=== PATIENT | female | born 1945 | race Caucasian/White ===

== ENCOUNTER → 2017-05-29 09:10 | Outpatient (CLI) | payer BC, MEDICARE, SELFPAY ==
--- NOTE | 2017-05-29 09:22 | MM_ITS ---
MM Dig screening mamm BI w/CAD CAD Screening ORDERING PHYSICIAN : Bev Truong PATIENT AGE: 72 years GENDER: Female COMPARISON: Previous mammograms: December INDICATION: No new complaints no hormones. Noncontributory family history . Previous right breast benign excisional surgical biopsy TECHNIQUE: Standard CC and MLO images were obtained. R2 CAD reviewed. FINDINGS: Minimal fibroglandular elements with generalized fatty replacement. No significant new findings either breast. No dominant mass nor suspicious calcifications. Prior films are helpful and supportive stable character breast bilaterally. The minor asymmetry appears stable with fibroglandular elements most evident in the medial retroareolar region ===IMPRESSION: = Stable bilateral mammogram with no significant new findings. Bilateral follow-up in one year recommended BI-RADS Category: 1 Negative 1 RECOMMENDED FOLLOW-UP: 1YR - 1 YEAR FOLLOW-UP (A letter has been sent to the patient regarding results of the study.)
== END ==
PROVIDERS: Family Provider Nurse Practitioner Family; PCP Nurse Practitioner Family; Visit Provider Nurse Practitioner Family
DX: Z12.31 Encounter for screening mammogram for malignant neoplasm of breast (principal)
CPT/HCPCS: 77067

== ENCOUNTER → 2018-06-04 15:40 | Outpatient (CLI) | payer BC, SELFPAY ==
--- NOTE | 2018-06-04 15:47 | MM_ITS ---
MM Dig screening mamm BI w/CAD CAD Screening COMPARISON: Digital mammograms with CAD 05/29/2017 and 01/02/2010 INDICATION: There is no personal or family history of breast cancer. There has been previous biopsy right breast for benign disease. TECHNIQUE: Standard CC and MLO images were obtained. R2 CAD reviewed. FINDINGS: The breasts are composed primarily of fat with minimal scattered fibro glandular densities in each breast. There is a benign-appearing calcification in each breast. There is no suspicious lesion and there are no suspicious microcalcifications. IMPRESSION: Fatty type breast parenchyma with no suspicious lesion seen BI-RADS Category: 2 Benign Finding(s) RECOMMENDED FOLLOW-UP: 1YR - 1 YEAR FOLLOW-UP (A letter has been sent to the patient regarding results of the study.)
== END ==
PROVIDERS: PCP Nurse Practitioner Family; Visit Provider Nurse Practitioner Family
DX: Z12.31 Encounter for screening mammogram for malignant neoplasm of breast (principal)
CPT/HCPCS: 77067

== ENCOUNTER → 2019-10-01 09:36 | Outpatient (CLI) | payer BC, SELFPAY ==
--- NOTE | 2019-10-01 09:44 | MM_ITS ---
PROCEDURE: MM DIG SCREENING MAMM BI W/CAD Digital Breast Tomosynthesis Included CLINICAL INDICATION: SCREENING There is no personal or family history of breast cancer. There has been a previous biopsy right breast for benign disease. COMPARISON: MG DMSB DIGITAL MAMM-SCREEN BILATERAL from 01/02/2010 [facility] MM Dig screening mamm BI w/CAD from 05/29/2017 [facility] MM Dig screening mamm BI w/CAD from 06/04/2018 TECHNIQUE: Standard CC and MLO images and 3D Tomosynthesis was obtained. R2 CAD reviewed. FINDINGS: Scattered fibroglandular densities are seen in both breasts on a background of fatty breast parenchyma. There is a benign-appearing calcification in each breast. There is slight inversion of the right nipple and this has been noted previously and paired early has been present since a previous biopsy right breast. There is no suspicious lesion in either breast and no suspicious microcalcifications. IMPRESSION: Fatty type breast parenchyma with no suspicious lesions seen BI-RAD Category: 2 Benign Finding(s) FOLLOW-UP: 1YR 1 Year Follow-up (A letter has been sent to the patient regarding results of the study.) Dictated by: Dr. Francisco Perdomo MD 10/01/2019 12:05 Dr. Francisco Perdomo MD in [place] 10/01/2019 12:05
== END ==
PROVIDERS: PCP Nurse Practitioner Family; Visit Provider Nurse Practitioner Family
DX: Z12.31 Encounter for screening mammogram for malignant neoplasm of breast (principal)
CPT/HCPCS: 77063; 77067

== ENCOUNTER → 2019-11-19 12:23 | Outpatient (CLI) | payer BC, SELFPAY ==
--- NOTE | 2019-11-19 12:32 | XR_ITS ---
PROCEDURE: XR CHEST 2V CLINICAL HISTORY: CONTUSION OF R FRONT WALL OF THORAX COMPARISON: No exams were available for comparison FINDINGS: The cardiomediastinal silhouette and pulmonary vascularity are within normal limits. The lungs are clear without infiltrates, suspicious nodules, or pleural effusions. No acute bony abnormalities. There is prominent lateral downsloping acromion process in both shoulders which could predispose to some degree of impingement syndrome. IMPRESSION: No acute findings. Dictated by: Dr. Francisco Perdomo MD 11/19/2019 14:18 Dr. Francisco Perdomo MD in [place] 11/19/2019 14:18
--- NOTE | 2019-11-19 12:33 | XR_ITS ---
PROCEDURE: XR SHOULDER RT MIN 2V Referring Doctor: Bev Truong Patient Age:74Y CLINICAL INDICATION: PAIN IN R SHOULDER Pain at right shoulder right breast, right chest after falling over brick wall.3 right shoulder pain- COMPARISON: CR XR CHEST 2V from 11/19/2019 FINDINGS: Right shoulder three views, No acute fracture or dislocation. Humeral head and neck intact. Glenohumeral joint relationships intact but bones well mineralized.. Suggestion of developing degenerative changes at the AC joint. The scapula is intact the apex right lung is clear. There rather long downward sloping acromion-. Nonspecific but can contribute to impingement symptoms at present IMPRESSION: No acute findings. Right shoulder. No fracture or dislocation Mild degenerative changes AC joint suggested Dictated by: Roddy Dueñas MD 11/19/2019 14:25 Roddy Dueñas MD in [place] 11/19/2019 14:25
== END ==
PROVIDERS: PCP Nurse Practitioner Family; Visit Provider Nurse Practitioner Family
DX: S20.211A Contusion of right front wall of thorax, initial encounter (principal); M25.511 Pain in right shoulder
CPT/HCPCS: 71046; 73030

== ENCOUNTER 2020-08-17 12:19 | Emergency (ER) | payer MEDICARE, SELFPAY ==
[2020-08-17 12:20] VITALS: BP 142/62; PULSE 76; RESP 16; TEMP 37; O2SAT 98; BMI 25.8
[2020-08-17 12:30] VITALS: BP 142/62; PULSE 76; RESP 16; TEMP 37; O2SAT 98; BMI 25.7
--- NOTE | 2020-08-17 12:36 | XR_ITS ---
PROCEDURE: XR KNEE LT 3V CLINICAL INDICATION: PAIN AND SWELLING COMPARISON: CR KNEE3L KNEE-3 VIEWS-LT from 08/24/2015 FINDINGS: No fracture or dislocation. No lytic or blastic change. There is normal mineralization. There are mild osteoarthritic changes involving the medial lateral compartment with minimal chondrocalcinosis. There is some increased density in the suprapatellar region suggesting knee joint effusion. Other findings:None. IMPRESSION: Minimal osteoarthritic change with small knee joint effusion Dictated by: Aureliano Mc MD 08/17/2020 13:03 Aureliano Mc MD in [place] 08/17/2020 13:03
[2020-08-17 12:57] LABS: Uric Acid 3.9 mg/dl (2.5-6.2)
--- NOTE | 2020-08-17 12:58 | HMH.EDUTC ---
[facility] Disposition Clinical Impression: Knee pain Qualifiers: Chronicity: acute Laterality: left Qualified Code(s): M25.562 - Pain in left knee Disposition: Home, Self-Care Condition on Discharge: Good Instructions: DI for Knee Pain, DI for Knee Effusion Additional Instructions: *weight bearing as tolerated *RICE, Rest the extremity, Ice 15-20 minutes 3-4 times daily, Compress- wear the deangelo wrap as discussed as much as possible to help reduce swelling and pain, Elevate the extremity when at rest *Deangelo wrap is for support and help control swelling, use it except in the shower. Be sure that is not to tight but not to loose either *Elevate when resting *Ibuprofen every 6-8 hours as needed for pain an inflammation if your doctor has said it was ok for you to take it. If need something more can take Tylenol in between doses of Ibuprofen to help Immediately follow up with your family doctor for new or worsening of symptoms, or no noticeable improvement over the next 3-5 days Follow up with Orthopedics for further treatment and evaluation Straight to ER if any life threatening symptoms, fever, chills, worsening of swelling or redness and warmth to the knee Referrals: Bev Truong [Primary Care Provider] - As needed Xander Monreal MD [Staff Physician] - Time of Disposition: 13:46 Medical Decision Making - Damion Inquiry Pt receiving controlled substance: No Damion was queried for this patient: No Vital Signs: 08/17/20 12:20 08/17/20 12:30 08/17/20 13:48 Temperature 98.6 F 98.6 F 98.6 F Temperature Source Oral Oral Pulse Rate 76 Pulse Rate [Radial] 76 76 Respiratory Rate 16 16 16 Blood Pressure 142/62 H Blood Pressure [Right Arm] 142/62 H 142/62 H Blood Pressure Mean [Right Arm] 88 88 Blood Pressure Source [Right Arm] Automatic Cuff Blood Pressure Position [Right Arm] Sitting Sitting 02 Sat by Pulse Oximetry 98 98 Oxygen Delivery Method Room Air Room Air - Lab Data Lab Results 08/17/20 12:45: Uric Acid 3.9 - Radiology Data #1 Image(s): Knee Image Reviewed: Yes I have reviewed radiologist's interpretation IMPRESSION: Minimal osteoarthritic change with small knee joint effusion Medical Decision Narrative: Recommended crutches and patient refused [facility] HPI - General Stated complaint: pain,swelling lft lower limb Time Seen by Provider: 08/17/20 13:02 Mode of Arrival: Ambulatory Source of Information: Patient Limitations: No Limitations Description of Symptoms (Recalled from Triage Doc. by RN): PATIENT C/O PAIN AND SWELLING TO LEFT KNEE X 2 DAYS. NO KNOWN INJURIES HEENT Symptoms (Recalled from RN notes): No Resp Symptoms (Recalled from RN notes): No Skin Symptoms (Recalled from RN notes): No MS Symptoms (Recalled from RN notes): Yes Functional Status (Recalled from RN notes): WNL - History of Present Illness Provider Complaint: Patient states that she has been walking alot and working outside in her garden bending and stooping States that she started having pain in her left knee and felt like it was swollen and thought she may have some fluid on it States that swelling is on the side of the knee and hurts worse when she bends it States that pain at times will shoot down her leg Denies fever, denies chills, denies body aches, denies redness or warmth to the area Denies any recent cuts or scrapes - Related Data Home Medications Medication Instructions Recorded Confirmed Amlodipine Besylate [Amlodipine 10 mg PO DAILY 08/17/20 08/17/20 10mg Tab] Losartan Potassium [Cozaar 100mg 100 mg PO DAILY 08/17/20 08/17/20 Tablets] Rosuvastatin Calcium [Crestor 20 20 mg PO DAILY 08/17/20 08/17/20 mg Tablets] Allergies Allergy/AdvReac Type Severity Reaction Status Date / Time No Known Allergies Allergy Verified 08/17/20 13:01 - Worker's Comp Is this a Worker's Comp case?: No [facility] History - Hepatitis A Screen Drug use history?: No High risk sexual beha
[2020-08-17 13:48] VITALS: BP 142/62; PULSE 76; RESP 16; TEMP 37; O2SAT 98
== END 2020-08-17 13:52 | disposition home or self-care (01) ==
PROVIDERS: Emergency Provider Nurse Practitioner; PCP Nurse Practitioner Family
DX: M25.562 Pain in left knee (principal)
CPT/HCPCS: G0463; 73562; 84550; 99202

== ENCOUNTER → 2020-11-20 09:35 | Outpatient (CLI) | payer MEDICARE, SELFPAY ==
--- NOTE | 2020-11-20 09:37 | XR_ITS ---
PROCEDURE: XR DEXA AXIAL SKELETON CLINICAL HISTORY: SCREENING FOR OSTEOPOROSIS COMPARISON: No exams were available for comparison FINDINGS: The right hip BMD is 0.57 with a T-score of -2 point. The left hip BMD is 0.680 with a T-score of -2.2. The lumbar spine BMD is 0.907 with a T-score of -1.3. IMPRESSION: This patient is considered osteoporotic according to the World Health Organization criteria. Fracture risk is high. Treatment is advised. Based on these results a follow-up exam is recommended in 1 year. Dictated by: Aureliano Mc MD 11/20/2020 18:12 Aureliano Mc MD in [place] 11/20/2020 18:12
--- NOTE | 2020-11-20 09:38 | MM_ITS ---
PROCEDURE: MM DIG SCREENING MAMM BI W/CAD Digital Breast Tomosynthesis Included CLINICAL INDICATION: SCREENING Is no personal or family history of breast cancer. There has been a previous biopsy right breast disease COMPARISON: [facility] MM Dig screening mamm BI w/CAD from 05/29/2017 [facility] MM Dig screening mamm BI w/CAD from 06/04/2018 MG MM DIG SCREENING MAMM BI W/CAD from 10/01/2019 TECHNIQUE: Standard CC and MLO images and 3D Tomosynthesis was obtained. R2 CAD reviewed. FINDINGS: The breasts are composed primarily of fat with scattered fibroglandular densities throughout each breast. Nipples are inverted bilaterally and been inverted on previous mammograms. There are couple of benign-appearing microcalcifications in each breast. A single CAD marking left breast was reviewed appears be benign. There is no new or suspicious lesion in either breast and there are no suspicious microcalcifications. IMPRESSION: Fibrofatty parenchyma with no suspicious lesions seen BI-RAD Category: 2 Benign Finding(s) FOLLOW-UP: 1YR 1 Year Follow-up (A letter has been sent to the patient regarding results of the study.) Dictated by: Dr. Francisco Perdomo MD 11/24/2020 08:20 Dr. Francisco Perdomo MD in [place] 11/24/2020 08:20
== END ==
PROVIDERS: PCP Nurse Practitioner Family; Visit Provider Nurse Practitioner Family
DX: Z12.31 Encounter for screening mammogram for malignant neoplasm of breast (principal); Z13.820 Encounter for screening for osteoporosis; M81.0 Age-related osteoporosis without current pathological fracture
CPT/HCPCS: 77063; 77067; 77080

== ENCOUNTER → 2021-07-24 09:55 | Outpatient (CLI) | payer MEDICARE, SELFPAY ==
--- NOTE | 2021-07-24 10:07 | US_ITS ---
FINAL REPORT CLINICAL HISTORY: CIRRHOSIS OF LIVER FINDINGS: Sonographic images of the right upper quadrant were obtained. The pancreas is partially obscured.The liver has an unremarkable appearance.The gallbladder is surgically absent.There is no evidence of biliary ductal dilatation.The common duct measures 4mm. Limited images of the right kidney are unremarkable. IMPRESSION: Unremarkable right upper quadrant ultrasound. Reviewed, Interpreted and Dictated by Anthony Yan III, MD Transcribed by Odalys Martins Authenticated and [facility]
[2021-07-24 11:00] LABS: Basophils # 0.1 K/mm3 (0-0.2); Eosinophils # 0.1 K/mm3 (0.0-0.4); Eosinophils % 1.8 % (0.1-12.0); Hematocrit 43.8 % (37.0-47.0); Hemoglobin 14.5 g/dL (12.2-16.2); Lymphocytes # 1.9 K/mm3 (0.7-4.5); Lymphocytes % 33.7 % (10-50); Mean Corpuscular HGB Conc 33.1 g/dL (31.8-35.4); Mean Corpuscular Hemoglobin 31.7 pg (27.0-31.2); Mean Corpuscular Volume 95.9 fl (81-99); Monocytes # 0.3 K/mm3 (0.1-1.0); Monocytes % 5.4 % (1.7-9.3); Neutrophils # 3.3 K/mm3 (1.8-7.8); Neutrophils % 58.1 % (37.0-80.0); Platelet Count 159 K/mm3 (142-424); Red Blood Count 4.57 M/mm3 (4.20-5.40); Red Cell Distribution Width 13.6 % (11.5-17.5); White Blood Count 5.8 K/mm3 (4.8-10.8)
[2021-07-24 11:36] LABS: Ammonia < 9 umol/L (9-30)
[2021-07-24 11:38] LABS: Blood Urea Nitrogen 6 mg/dl (7-17); Estimated Glomerular Filt Rate 82 ml/min (>60); GFR (African American) 99 ML/MIN (>60)
[2021-07-24 11:39] LABS: Alanine Aminotransferase 21 U/L (12-78); Albumin Level 4.3 g/dl (3.5-5.0); Albumin/Globulin Ratio 1.6 (1.1-1.8); Alkaline Phosphatase 54 U/L (38-126); Aspartate Amino Transferase 28 U/L (14-36); Bilirubin,Total 0.4 mg/dl (0.2-1.3); Calcium 9.4 mg/dl (8.4-10.2); Carbon Dioxide 24 mmol/L (22.0-30.0); Globulin 2.7 g/dL (1.3-3.2); Glucose 114 mg/dl (74-100); Iron 65 ug/dL (37-170)
[2021-07-24 11:48] LABS: INR 0.94 (0.9-1.1); Prothrombin Time 10.7 seconds (10.1-12.5); Total Iron Binding Capacity 290 ug/dL (265-497)
[2021-07-24 11:54] LABS: Anion Gap 11.1 mEq/L (5-15); Chloride 113 mmol/L (98-107); Potassium 4.1 mmoL/L (3.5-5.1); Sodium 144 mmol/L (136-145)
[2021-07-24 12:13] LABS: Ferritin 87.6 ng/ml (11.1-264)
[2021-07-26 01:54] LABS: ALT (SGPT) P5P 19 IU/L (0-40); Alpha 2-Macroglobulins, Qn 377 mg/dL (110-276); Apolipoprotein A-1 136 mg/dL (116-209); Bilirubin, Total 0.3 mg/dL (0.0-1.2); Fibrosis Stage F1-F2 (.); GGT 10 IU/L (0-60); Haptoglobin 131 mg/dL (42-346); Necroinflammat Activity Grade A0-No activity (.); Necroinflammat Activity Score 0.08 (0.00-0.17)
== END ==
PROVIDERS: PCP Nurse Practitioner Family; Visit Provider Internal Medicine Gastroenterology
DX: K74.69 Other cirrhosis of liver (principal)
CPT/HCPCS: 36415; 76705; 80053; 81596; 82105; 82140; 82728; 83540; 83550; 85025; 85610; 87522

== ENCOUNTER → 2022-02-27 12:57 | Outpatient (CLI) | payer MEDICARE, SELFPAY ==
--- NOTE | 2022-02-27 13:01 | MM_ITS ---
PROCEDURE INFORMATION: Exam: MG Bilateral Screening 3D Mammography Exam date and time: 02/27/2022 1:06 PM Age: 77 years old Clinical indication: Screening examination. No family history of breast cancer. History of benign right excisional biopsy. TECHNIQUE: Imaging protocol: Bilateral Screening tomosynthesis and 2D mammography including computer-aided detection (CAD) when performed. COMPARISON: 1. MG MM DIG SCREENING MAMM BI W/CAD 11/20/2020 9:42 AM 2. MG MM DIG SCREENING MAMM BI W/CAD 10/01/2019 9:58 AM 3. [facility] MM Dig screening mamm BI w/CAD 06/04/2018 3:54 PM 4. [facility] MM Dig screening mamm BI w/CAD 05/29/2017 9:40 AM FINDINGS: MAMMOGRAPHY: Breast composition: There are scattered areas of fibroglandular density. Mass: None. Architectural distortion: None. Calcifications: No suspicious calcifications. Asymmetric density: None. Skin thickening: None. Axillary adenopathy: None. Other: Stable right inverted nipple. IMPRESSION: No mammographic evidence of malignancy. Annual screening is recommended unless otherwise clinically indicated. ASSESSMENT: BI-RADS Category 2: Benign
== END ==
PROVIDERS: PCP Nurse Practitioner Family; Visit Provider Nurse Practitioner Family
DX: Z12.31 Encounter for screening mammogram for malignant neoplasm of breast (principal)
CPT/HCPCS: 77063; 77067

== ENCOUNTER → 2022-07-13 11:51 | Outpatient (CLI) | payer MEDICARE, SELFPAY ==
[2022-07-13 12:28] LABS: Basophils % 0.7 % (0.1-2.0); Eosinophils # 0.1 K/mm3 (0.0-0.4); Eosinophils % 1.8 % (0.1-12.0); Hematocrit 44.1 % (37.0-47.0); Hemoglobin 14.5 g/dL (12.2-16.2); Lymphocytes # 1.8 K/mm3 (0.7-4.5); Lymphocytes % 31.6 % (10-50); Mean Corpuscular HGB Conc 32.8 g/dL (31.8-35.4); Mean Corpuscular Hemoglobin 30.6 pg (27.0-31.2); Mean Corpuscular Volume 93.2 fl (81-99); Mean Platelet Volume 8.9 fl (7.4-10.4); Monocytes # 0.3 K/mm3 (0.1-1.0); Monocytes % 5.6 % (1.7-9.3); Neutrophils # 3.4 K/mm3 (1.8-7.8); Neutrophils % 60.4 % (37.0-80.0); Platelet Count 167 K/mm3 (142-424); Red Blood Count 4.74 M/mm3 (4.20-5.40); Red Cell Distribution Width 13.4 % (11.5-17.5); White Blood Count 5.7 K/mm3 (4.8-10.8)
[2022-07-13 13:06] LABS: Chloride 109 mmol/L (98-107); Sodium 143 mmol/L (136-145)
[2022-07-13 13:07] LABS: Potassium 4.3 mmoL/L (3.5-5.1)
[2022-07-13 13:09] LABS: Alanine Aminotransferase 27 U/L (12-78); Alkaline Phosphatase 41 U/L (38-126); Aspartate Amino Transferase 31 U/L (14-36); Bilirubin,Total 0.5 mg/dl (0.2-1.3); Blood Urea Nitrogen 11 mg/dl (7-17); Estimated Glomerular Filt Rate 70 ml/min (>60); GFR (African American) 85 ML/MIN (>60)
[2022-07-13 13:10] LABS: Albumin Level 4.2 g/dl (3.5-5.0); Anion Gap 11.3 mEq/L (5-15); Calcium 9.1 mg/dl (8.4-10.2); Carbon Dioxide 27 mmol/L (22.0-30.0); Glucose 96 mg/dl (74-100)
[2022-07-13 13:13] LABS: Albumin/Globulin Ratio 1.6 (1.1-1.8); Globulin 2.7 g/dL (1.3-3.2); Total Protein,Serum 6.9 g/dl (6.3-8.2)
[2022-09-03 23:43] LABS: Fibrosis Score 0.34; Fibrosis Stage F1-F2
[2022-09-03 23:44] LABS: NASH Score 0.25
[2022-09-03 23:45] LABS: ALT (SGPT) P5P 20; AST (SGOT) P5P 23; Alpha 2-Macroglobulins, Qn 360; Apolipoprotein A-1 154; Bilirubin, Total 0.3; Cholesterol, Total 136; GGT 11; Haptoglobin 137; Triglycerides 96
[2022-09-03 23:46] LABS: Glucose 100
== END ==
PROVIDERS: PCP Nurse Practitioner Family; Visit Provider Nurse Practitioner Family
DX: R19.7 Diarrhea, unspecified (principal); R15.2 Fecal urgency; K74.69 Other cirrhosis of liver; Z86.19 Personal history of other infectious and parasitic diseases
CPT/HCPCS: 36415; 80053; 85025

== ENCOUNTER → 2023-02-05 16:26 | Outpatient (CLI) | payer MEDICARE, SELFPAY | LOC: LAB 16:27 | PROVIDERS: PCP Nurse Practitioner Family; Visit Provider Nurse Practitioner Family | DX: R15.2 Fecal urgency (principal); R19.7 Diarrhea, unspecified ==

== ENCOUNTER → 2023-02-12 14:01 | Outpatient (CLI) | payer MEDICARE, SELFPAY ==
[2023-02-12 14:11] LABS: Adenovirus F 40/41, stool Not Detected (NotDetected); Astrovirus Not Detected (NotDetected); Campylobacter Not Detected (NotDetected); Clostridium Difficile A/B, PCR Not Detected (NotDetected); Cryptosporidium Not Detected (NotDetected); Cyclospora Cayetanesis Not Detected (NotDetected); Entamoeba histolytica Not Detected (NotDetected); Enteroaggregative E coli Not Detected (NotDetected); Enteropathogenic E coli Not Detected (NotDetected); Enterotoxigenic E coli Not Detected (NotDetected); Giardia lamblia Not Detected (NotDetected); Norovirus Not Detected (NotDetected); Plesimonas Shigalloides, PCR Not Detected (NotDetected); Rotavirus A Not Detected (NotDetected); Salmonella, PCR Not Detected (NotDetected); Sapovirus Not Detected (NotDetected); Shiga-like toxin E coli Not Detected (NotDetected); Shigella Enterovasive E coli Not Detected (NotDetected); Vibrio Cholerae Not Detected (NotDetected); Vibrio, PCR Not Detected (NotDetected); Yersinia Entercolitica, PCR Not Detected (NotDetected)
[2023-02-20 00:09] LABS: Calprotectin, Fecal 9 ug/g (0-120)
== END ==
LOC: LAB.DROPOF 14:03
PROVIDERS: PCP Nurse Practitioner Family; Visit Provider Nurse Practitioner Family
DX: R19.7 Diarrhea, unspecified (principal); R15.2 Fecal urgency
CPT/HCPCS: 83993; 87506

== ENCOUNTER 2023-04-04 09:28 | Outpatient (CLI) | payer MEDICARE, SELFPAY ==
--- NOTE | 2023-04-04 09:36 | MM_ITS ---
PROCEDURE INFORMATION: Exam: MG Bilateral Screening 3D Mammography Exam date and time: 04/04/2023 9:42 AM Age: 78 years old Clinical indication: Screening mammogram TECHNIQUE: Imaging protocol: Bilateral Screening tomosynthesis and 2D mammography including computer-aided detection (CAD) when performed. COMPARISON: 1. MG MM DIG SCREENING MAMM BI W/CAD 02/27/2022 1:06 PM 2. MG MM DIG SCREENING MAMM BI W/CAD 11/20/2020 9:42 AM 3. MG MM DIG SCREENING MAMM BI W/CAD 10/01/2019 9:58 AM 4. [facility] MM Dig screening mamm BI w/CAD 06/04/2018 3:54 PM FINDINGS: MAMMOGRAPHY: Breast composition: There are scattered areas of fibroglandular density. Mass: None. Architectural distortion: No new or suspicious architectural distortion. Calcifications: No new or suspicious calcifications are present Asymmetric density: No new or suspicious asymmetric density is present Skin thickening: None. Axillary adenopathy: None. IMPRESSION: No mammographic evidence of malignancy. Recommend annual screening mammography unless otherwise clinically indicated. ASSESSMENT: BI-RADS category 1: Negative
--- NOTE | 2023-04-04 09:37 | XR_ITS ---
FINAL REPORT TECHNIQUE: Bone mineral density was calculated of the lumbar spine and hip. CLINICAL HISTORY: OSTEOPOROSIS COMPARISON: 11/20/2020 FINDINGS: Using L1-4, the bone mineral density of the spine is 0.915 g/cm2, corresponding to T-score of -1.2. Using the left hip, the bone mineral density of the femoral neck is 0.715 g/cm2, corresponding to a T-score of -1.9. NOTE: T-score: Standard deviation compared with peak bone mass of young adult mean. *Following the recommendations of the International Society of Bone densitometry, classification of hip BMD is based on the lower of two T-scores; total hip or femoral neck. IMPRESSION: Diminished bone mineral density of the lumbar spine and left hip consistent with low bone density. Reviewed, Interpreted and Dictated by Anthony Yan III, MD Transcribed by Kay Ferguson Authenticated and [facility]
== END 2023-04-04 23:59 ==
LOC: RAD 09:29
PROVIDERS: PCP Nurse Practitioner Family; Visit Provider Nurse Practitioner Family
DX: Z12.31 Encounter for screening mammogram for malignant neoplasm of breast (principal); M81.0 Age-related osteoporosis without current pathological fracture
CPT/HCPCS: 77063; 77067; 77080

== ENCOUNTER 2024-05-26 18:27 | Emergency (ER) | payer MEDICARE, SELFPAY ==
[2024-05-26 18:39] VITALS: BP 188/77; PULSE 61; RESP 15; TEMP 36.6; O2SAT 99; BMI 30.2
--- NOTE | 2024-05-26 19:11 | XR_ITS ---
PROCEDURE INFORMATION: Exam: XR Chest Exam date and time: 05/26/2024 7:21 PM Age: 79 years old Clinical indication: Injury or trauma; Fall; Blunt trauma (contusions or hematomas); Additional info: Fall, neck pain TECHNIQUE: Imaging protocol: Radiologic exam of the chest. Views: 2 views. COMPARISON: CR XR CHEST 2V 11/19/2019 12:48 PM FINDINGS: Lungs: Unremarkable. No consolidation. Pleural spaces: Unremarkable. No pleural effusion. No pneumothorax. Heart/Mediastinum: Unremarkable. No cardiomegaly. Bones/joints: Unremarkable. IMPRESSION: No acute findings.
--- NOTE | 2024-05-26 19:11 | CT_ITS ---
PROCEDURE INFORMATION: Exam: CT Cervical Spine Without Contrast Exam date and time: 05/26/2024 7:31 PM Age: 79 years old Clinical indication: Injury or trauma; Fall; Blunt trauma TECHNIQUE: Imaging protocol: Computed tomography of the cervical spine without contrast. Radiation optimization: All CT scans at this facility use at least one of these dose optimization techniques: automated exposure control; mA and/or kV adjustment per patient size (includes targeted exams where dose is matched to clinical indication); or iterative reconstruction. COMPARISON: CR XR CHEST 2V 05/26/2024 7:21 PM FINDINGS: Bones: Moderate disc space narrowing with disc bulge and uncovertebral spurring at the C5-C6 and C6-C7 disc levels producing moderate to severe stenosis of the bilateral C6 and C7 neural foramina. Moderate degenerative changes are present in the atlantodental joint. No acute fracture. Lungs: Lung apices are normal. Soft tissues: Unremarkable. IMPRESSION: No acute fracture. Degenerative changes as noted.
--- NOTE | 2024-05-26 19:13 | XR_ITS ---
PROCEDURE INFORMATION: Exam: XR Right Hip Exam date and time: 05/26/2024 7:24 PM Age: 79 years old Clinical indication: Injury or trauma; Fall; Blunt trauma (contusions or hematomas); Right; Hip; Additional info: Fall, neck pain TECHNIQUE: Imaging protocol: Radiologic exam of the right hip. Views: 2 or 3 views hip with pelvis when performed. COMPARISON: No relevant prior studies available. FINDINGS: Bones/joints: Osseous alignment is normal. No acute fracture. Mild degenerative changes of the lower lumbar spine and bilateral hip joints. Soft tissues: Unremarkable. IMPRESSION: No acute abnormality
--- NOTE | 2024-05-26 19:28 | CT_ITS ---
PROCEDURE INFORMATION: Exam: CT Lumbar Spine Without Contrast Exam date and time: 05/26/2024 7:31 PM Age: 79 years old Clinical indication: Injury or trauma; Fall; Blunt trauma (contusions or hematomas) TECHNIQUE: Imaging protocol: Computed tomography of the lumbar spine without contrast. Radiation optimization: All CT scans at this facility use at least one of these dose optimization techniques: automated exposure control; mA and/or kV adjustment per patient size (includes targeted exams where dose is matched to clinical indication); or iterative reconstruction. COMPARISON: CR XR HIP RT 2-3V W/PELVIS 05/26/2024 7:24 PM FINDINGS: Bones/joints: Osseous alignment is normal. Slight leftward convexity of the lumbar spine. Mild chronic appearing compression of T12. No acute fracture. Mild multilevel disc bulge and uncovertebral spurring throughout the lumbar spine. Mild multilevel bilateral facet arthropathy. Mild degenerative changes in the bilateral sacroiliac joints. Vasculature: Dense atherosclerotic calcification in the distal aorta and iliac arteries. No aneurysm. Soft tissues: Unremarkable. IMPRESSION: No acute fracture. Chronic findings as noted.
--- NOTE | 2024-05-26 19:28 | CT_ITS ---
PROCEDURE INFORMATION: Exam: CT Thoracic Spine Without Contrast Exam date and time: 05/26/2024 7:31 PM Age: 79 years old Clinical indication: Injury or trauma; Fall; Blunt trauma (contusions or hematomas) TECHNIQUE: Imaging protocol: Computed tomography of the thoracic spine without contrast. Radiation optimization: All CT scans at this facility use at least one of these dose optimization techniques: automated exposure control; mA and/or kV adjustment per patient size (includes targeted exams where dose is matched to clinical indication); or iterative reconstruction. COMPARISON: CR XR CHEST 2V 05/26/2024 7:21 PM FINDINGS: Bones/joints: Osseous alignment is normal. Mild chronic appearing compression of the T12 vertebral body. No acute fracture. Moderate multilevel degenerative disc changes in the lower cervical and lower thoracic spine. Soft tissues: Unremarkable. Vasculature: Dense atherosclerotic calcification in the abdominal aorta. No aneurysm. IMPRESSION: No acute fracture. Chronic findings as noted.
--- NOTE | 2024-05-26 19:32 | ED_ITS ---
Discharge Plan Disposition Patient Disposition: Home, Self-Care Condition: Good Prescriptions Prescriptions: No Action amlodipine 10 MG tablet 10 mg PO DAILY losartan 100 MG tablet 100 mg PO DAILY rosuvastatin 20 MG tablet 20 mg PO DAILY Referrals Follow up/Referrals: Bev Truong [Primary Care Provider] - See instructions Activity Restrictions/Add. Instructions Additional Instructions/Restrictions: Follow-up with PCP Tylenol ibuprofen as needed for pain If symptoms worsen or do not improve return Clinical Impressions Clinical Impression: Acute hip pain Qualifiers: Laterality: right Qualified Code(s): M25.551 - Pain in right hip Acute strain of neck muscle Qualifiers: Encounter type: initial encounter Qualified Code(s): S16.1XXA - Strain of muscle, fascia and tendon at neck level, initial encounter Instructions Patient Instructions: DI for Cervical Muscle Strain, DI for Hip Pain Print Language Print Language: Mongolian Discharge ED Provider: Jared Jarvis General Adult HPI <Lionel Teran ([facility]), [employer] - Last Filed: 05/26/24 20:46> General Chief complaint: PAIN Stated complaint: AO 4-9 fell and hit head and right side Time Seen by Provider: 05/26/24 19:05 Mode of Arrival: Ambulatory Source of Information: Patient Description of Symptoms (Recalled from ER Triage Doc. by RN): patient states she fell in a pot hole hitting her right hip right side of neck, she is reporting pain in right hip and right posterier neck History of Present Illness HPI narrative: 79-year-old female presents for pain in right hip, neck after a fall. Patient states she was walking out of a tractor supply hit a hole and tripped landing on her right side hitting the side of her head. Complaining of neck and hip pain. Denies LOC or any neurological issues Related Data Home Medications ?Medication ?Instructions ?Recorded ?Confirmed amlodipine 10 mg tablet 10 mg PO DAILY Hypertension 08/17/20 08/17/20 losartan 100 mg tablet 100 mg PO DAILY Hypertension 08/17/20 08/17/20 rosuvastatin 20 mg tablet 20 mg PO DAILY Cholesterol 08/17/20 08/17/20 Allergies Allergy/AdvReac Type Severity Reaction Status Date / Time No Known Allergies Allergy Verified 08/17/20 13:01 PFSH <Lionel Teran ([facility]), [employer] - Last Filed: 05/26/24 20:46> PFSH Disclaimer: The information contained in this section may have been updated after the patient was seen, as this information can be updated by other users. Social History , [employer]) Smoking Status: Current every day smoker alcohol intake: never current occupational status: other Travel in the last 8 weeks: None Have you lived/traveled outside [place] in past 30 days?: No Contact w/someone who lives/traveled outside [place] past 30 days?: No Exposure to someone with infectious disease in past 14 days?: No Do you have a fever (greater than 100.4 F or 38 C)?: No Have you tested positive for COVID-19: No Exposed to someone with COVID-19 in past 14 days?: No Do you have a sore throat?: No Do you have a cough?: No Do you have any weakness?: No Do you have any diarrhea?: No Are you experiencing any unusual bleeding?: No Do you have any muscle aches/pain?: No Do you have any abdominal pain?: No Are you experiencing loss of taste or smell?: No <Lionel Teran ([facility]), [employer] - Last Filed: 05/26/24 20:46> ROS Obtained: Yes Systems reviewed as appropriate & no additional complaints except as documented Musculoskeletal Musculoskeletal: Reports system reviewed and no additional complaints, except as documented, Reports as per HPI, Reports arthralgias and Reports joint stiffness Physical Exam <Lionel Teran ([facility]), [employer] - Last Filed: 05/26/24 20:46> General General appearance: alert and in no apparent distress Head Head exam: atraumatic and other Expanded Head Exam Head image: 2 1. Small hematoma with abrasion Eye Eye exam: Present normal appearance ENT ENT exam: Present normal exam Neck Neck exam: Present normal inspection, full ROM and tenderness Chest Chest inspection: Present normal inspection and symmetric chest wall rise; Absent tenderness Respiratory Respiratory exam: Present normal lung sounds bilaterally Cardiovascular Cardiovascular exam: Present regular rate and normal rhythm Abdominal Exam Abdominal exam: Present soft and normal bowel sounds; Absent tenderness Back Exam Back exam: Present normal inspection and full ROM; Absent tenderness, muscle spasm, paraspinal tenderness or vertebral tenderness Neurological Exam Neurological exam: Present alert, oriented X3, CN II-XII intact and normal gait Skin Skin exam: Present warm and intact Medical Decision Making <Lionel Teran ([facility]), [employer] - Last Filed: 05/26/24 20:46> Medical Records Medical records reviewed: Yes I reviewed the patient's medical records. Screening: Per USPSTF and CDC recommendations, given the prevalence of disease in our region, it is our hospital?s policy to screen for HIV and viral Hepatitis for all patients aged 18 and over and those with ongoing risk factors. [place] Inquiry Pt receiving controlled substance: No [place] was queried for this patient: No Vital Signs: 05/26/24 18:39 05/26/24 20:52 Temperature 97.8 F 98.1 F Temperature Source Oral Oral Pulse Rate 86 Pulse Rate [Left] 61 Respiratory Rate 15 16 Blood Pressure 160/86 H Blood Pressure [Left Arm] 188/77 H Blood Pressure Mean [Left Arm] 114 Blood Pressure Source Automatic Cuff Blood Pressure Source [Left Arm] Automatic Cuff Blood Pressure Position Supine Blood Pressure Position [Left Arm] Sitting 02 Sat by Pulse Oximetry 99 Oxygen Delivery Method Room Air Room Air Orders (Tests/Meds): ORDERS Category Date Time Status CT cervical spine wo con Stat Cat Scan 05/26/24 19:[address] lumbar spine wo con Stat Cat Scan 05/26/24 19:[address] thoracic spine wo con Stat Cat Scan 05/26/24 19:28 Completed Chest XR 2 view (NOT portable) [XR chest 2V] Stat Exams 05/26/24 19:11 Completed Hip XR right minimum 2 views [XR hip RT 2-3V w/pelvis] Exams 05/26/24 19:13 Completed Stat Medical Decision Narrative: In summary patient is a 79-year-old female who presents to the emergency department for evaluation of hip pain, neck pain status post fall. Patient is hemodynamically stable upon arrival, afebrile. Small hematoma just above right eye. Differential diagnosis includes fracture, abrasion. Initial workup will be conducted with CT C-spine, T-spine, and L-spine negative. X-ray hip negative. Initial inventions include x-rays. Initial workup reviewed by me imaging unremarkable no fractures identified. Upon repeat evaluation patient sitting up in chair comfortably asking to go home. Given this patient was appropriate for discharge at this time will discharge home follow-up with PCP. <Jared Jarvis MD - Last Filed: 05/27/24 00:21> Vital Signs: 05/26/24 18:39 05/26/24 20:52 Temperature 97.8 F 98.1 F Temperature Source Oral Oral Pulse Rate 86 Pulse Rate [Left] 61 Respiratory Rate 15 16 Blood Pressure 160/86 H Blood Pressure [Left Arm] 188/77 H Blood Pressure Mean [Left Arm] 114 Blood Pressure Source Automatic Cuff Blood Pressure Source [Left Arm] Automatic Cuff Blood Pressure Position Supine Blood Pressure Position [Left Arm] Sitting 02 Sat by Pulse Oximetry 99 Oxygen Delivery Method Room Air Room Air Orders (Tests/Meds): ORDERS Category Date Time Status CT cervical spine wo con Stat Cat Scan 05/26/24 19:[address] lumbar spine wo con Stat Cat Scan 05/26/24 19:[address] thoracic spine wo con Stat Cat Scan 05/26/24 19:28 Completed Chest XR 2 view (NOT portable) [XR chest 2V] Stat Exams 05/26/24 19:11 Completed Hip XR right minimum 2 views [XR hip RT 2-3V w/pelvis] Exams 05/26/24 19:13 Completed Stat Medical Decision Narrative: In summary patient is a 79-year-old female who presents to the emergency department for evaluation of hip pain, neck pain status post fall. Patient is hemodynamically stable upon arrival, afebrile. Small hematoma just above right eye. Differential diagnosis includes fracture, abrasion. Initial workup will be conducted with CT C-spine, T-spine, and L-spine negative. X-ray hip negative. Initial inventions include x-rays. Initial workup reviewed by me imaging unremarkable no fractures identified. Upon repeat evaluation patient sitting up in chair comfortably asking to go home. Given this patient was appropriate for discharge at this time will discharge home follow-up with PCP. I independently interpreted patient's images. No acute traumatic findings on spine CTs or plain radiographs. I was consulted by the EDWARD, and we discussed the complexity of the problems being addressed. I approved the treatment and management plan for this patient's care in the Emergency Department, thus performing a substantive portion of the medical decision making. Jared Jarvis MD Critical Care <Lionel Teran ([facility]), [employer] - Last Filed: 05/26/24 20:46> Critical Care Time Critical Care Time: No
[2024-05-26 20:52] VITALS: BP 160/86; PULSE 86; RESP 16; TEMP 36.7; O2SAT 99
== END 2024-05-26 20:53 | disposition home or self-care (01) ==
PROVIDERS: Emergency Provider Emergency Medicine; PCP Nurse Practitioner Family
DX: S16.1XXA Strain of muscle, fascia and tendon at neck level, initial encounter (principal); M25.551 Pain in right hip; M54.2 Cervicalgia; Z72.0 Tobacco use; W01.0XXA Fall on same level from slipping, tripping and stumbling without subsequent striking against object, initial encounter; Y93.89 Activity, other specified; Y92.512 Supermarket, store or market as the place of occurrence of the external cause
CPT/HCPCS: 71046; 72125; 72128; 72131; 73502; 99284

== ENCOUNTER 2024-06-16 14:49 | Outpatient (CLI) | payer MEDICARE, SELFPAY ==
--- NOTE | 2024-06-16 14:51 | MM_ITS ---
PROCEDURE INFORMATION: Exam: MG Bilateral Screening 3D Mammography Exam date and time: 06/16/2024 2:57 PM Age: 79 years old Clinical indication: Screening examination TECHNIQUE: Imaging protocol: Bilateral Screening tomosynthesis and 2D mammography including computer-aided detection (CAD) when performed. COMPARISON: 1. MG MM DIG SCREENING MAMM BI W/CAD 04/04/2023 9:42 AM 2. MG MM DIG SCREENING MAMM BI W/CAD 02/27/2022 1:06 PM FINDINGS: MAMMOGRAPHY: Breast composition: There are scattered areas of fibroglandular density. Mass: No suspicious masses. Architectural distortion: None. Calcifications: No suspicious calcifications. Asymmetric density: None. Skin thickening: None. Axillary adenopathy: None. IMPRESSION: No mammographic evidence of malignancy. Annual screening is recommended unless otherwise clinically indicated. ASSESSMENT: BI-RADS Category 1: Negative.
== END 2024-06-16 23:59 | disposition home or self-care (01) ==
LOC: RAD 14:49
PROVIDERS: PCP Nurse Practitioner Family; Visit Provider Nurse Practitioner Family
DX: Z12.31 Encounter for screening mammogram for malignant neoplasm of breast (principal)
CPT/HCPCS: 77063; 77067